=== PATIENT | female | born 1995 | race Caucasian/White ===

== ENCOUNTER 2020-02-01 21:04 | Emergency (ER) | payer OTHER, SELFPAY ==
[~2020-02-01] VITALS: Ht 160 cm; Wt 52.2 kg
[2020-02-01 21:06] VITALS: Ht 160 cm; Wt 52.2 kg
[2020-02-01 22:14] VITALS: BP 137/88
== END 2020-02-01 22:14 | disposition home or self-care (01) ==
LOC: ED 21:04
DX: R05 Cough (principal); R07.89 Other chest pain
CPT/HCPCS: Q0092